=== PATIENT | female | born 1980 | race Two or more races ===

== ENCOUNTER 2016-12-18 09:33 | Day surgery (SDC) | payer OTHER ==
[2016-12-15 17:00] LABS: Basophils # (auto) 0.1 uL; Basophils % (auto) 0.6 % (0.0-2.0); Eosinophils # (auto) 2.1 uL; Hematocrit 43.2 % (36.0-46.0); Hemoglobin 15.2 g/dL (12.2-16.2); Lymphocytes # (auto) 2.5 uL; Lymphocytes % (auto) 26.8 % (10.0-50.0); Mean Corpuscular Hemoglobin 32.5 pg (28.0-32.0); Mean Corpuscular Hgb Conc. 35.2 g/dL (32.0-36.0); Mean Corpuscular Volume 92.2 fL (80.0-100.0); Mean Platelet Volume 8.7 fL (7.4-10.4); Monocytes # (auto) 0.6 uL; Neutrophils # (auto) 4.1 uL; Neutrophils % (auto) 43.8 % (37.0-80.0); Nucleated Red Blood Cells % 0.1 %; Platelet Count (auto) 266 10^3/uL (140-450); Red Cell Distribution Width 13.8 % (11.6-16.0); Urine Bilirubin Negative (Negative); Urine Blood Negative /uL (Negative); Urine Color Yellow (Yellow); Urine Glucose Normal (Normal); Urine Ketone Negative (Negative); Urine Nitrite Negative (Negative); Urine RBC <1 /hpf (0 - 4); Urine Squamous Epithelial Cell FEW /hpf (<5); Urine Urobilinogen Normal (Negative); White Blood Cell 9.4 10^3/uL (4.4-10.8)
[2016-12-15 17:04] LABS: Eosinophils % (auto) 22.8 % (0.0-7.0)
[2016-12-15 17:11] LABS: Albumin 3.6 g/dL (3.4-5.0); Calcium 8.7 mg/dL (8.5-10.1); Potassium 4.4 mmol/L (3.5-5.1)
[2016-12-15 17:17] LABS: Bilirubin, Total 0.9 mg/dL (0.2-1.0); Total Protein 7.2 g/dL (6.4-8.2)
[2016-12-15 17:24] LABS: INR 0.98 (0.9-1.15); Partial Thromboplastin Time 27.8 sec (22.64-33.71); Prothrombin Time 10.7 sec (9.37-12.3)
[2016-12-15 18:18] LABS: Platelet Estimate Adequate
[2016-12-15 18:19] LABS: RBC Morphology Normal
[~2016-12-18] VITALS: Ht 165.1 cm; Wt 77.1 kg
[~2016-12-18 09:33] MED LIST: THYR30TA PO
[2016-12-18] MEDS ORDERED: ceFAZolin 1GM/50ML D5W 50 ML IV ONE (10:35)
[2016-12-18] MEDS ORDERED: traMADol HCL 50 MG TAB PO PRN (11:30)
[2016-12-18] MEDS ORDERED: fentaNYL CITRATE 100 MCG/2 ML VL ONE (12:39)
[2016-12-18] MEDS ORDERED: MIDAZOLAM HCL 1MG/1ML-2 ML VIAL ONE (12:39)
[2016-12-18] MEDS ORDERED: HYDROmorphone HCL 2 MG/ML VL ONE (12:39)
[2016-12-18] MEDS ORDERED: ONDANSETRON HCL 4 MG/2 ML VIAL ONE (12:39)
[2016-12-18] MEDS ORDERED: PROPOFOL 10 MG/ML 20 ML IV ONE (12:39)
[2016-12-18] MEDS ORDERED: ONDANSETRON HCL 4 MG/2 ML VIAL IV PRN (13:00)
[2016-12-18] MEDS ORDERED: LIDOCAINE W/ EPINEPHRINE 1 % INJ 30ML ONE (13:02)
[2016-12-18] MEDS ORDERED: BUPIVACAINE 0.25% INJ 50ML VIAL ONE (13:02)
[2016-12-18] MEDS ORDERED: KETOROLAC TROMETH 60MG/2ML VIAL IM ONE (13:11)
[2016-12-18] MEDS ORDERED: ceFAZolin 1GM VL ONE (13:28)
[2016-12-18] MEDS ORDERED: diphenhdrAMINE HCL 50 MG/1 ML VL ONE (14:11)
[2016-12-18] MEDS ORDERED: HYDROmorphone HCL 2 MG/ML VL IV PRN (14:30)
[2016-12-18] MEDS ORDERED: METOCLOPRAMIDE HCL 5MG/ml INJ 2ml VIAL IV ONE (14:30)
[2016-12-18] MEDS ORDERED: diphenhdrAMINE HCL 50 MG/1 ML VL IV ONE (14:30)
[2016-12-18] MEDS ORDERED: KETOROLAC TROMETH 30 MG/ML 1ML VIAL IV ONE (14:30)
[2016-12-18 15:10] VITALS: BP 132/72
== END 2016-12-18 15:20 | disposition home or self-care (01) ==
LOC: SUR 09:33
PROVIDERS: ATTEND Obstetrics & Gynecology
DX: N84.2 Polyp of vagina (principal); N81.10 Cystocele, unspecified; N39.3 Stress incontinence (female) (male); I10 Essential (primary) hypertension; E06.9 Thyroiditis, unspecified; Z90.49 Acquired absence of other specified parts of digestive tract; Z90.710 Acquired absence of both cervix and uterus; I11.9 Hypertensive heart disease without heart failure; F10.99 Alcohol use, unspecified with unspecified alcohol-induced disorder; Z90.722 Acquired absence of ovaries, bilateral
CPT/HCPCS: 36415; 57106; 57240; 57288; 80053; 81001; 85025; 85610; 85730; 87086; 88302; 88305; C1771; J0690; J1170; J1200; J1885; J2001; J2250; J2405; J2704; J3010; J3490

== ENCOUNTER 2025-02-17 15:46 | Emergency (ER) | payer OTHER ==
[~2025-02-17] VITALS: Ht 165.1 cm; Wt 71.6 kg
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
[2025-02-17] MEDS: HYDROcodone-ACET 10/325MG TAB PO ONE (16:53)
[2025-02-17 16:55] VITALS: BP 167/100; PULSE 63; RESP 17; TEMP 98.6; O2SAT 98
[2025-02-17] MEDS ORDERED: TRAM-626 PO (17:40)
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
== END 2025-02-17 18:03 | disposition home or self-care (01) ==
LOC: ER 15:46
DX: S20.229A Contusion of unspecified back wall of thorax, initial encounter (principal); S09.8XXA Other specified injuries of head, initial encounter; F17.200 Nicotine dependence, unspecified, uncomplicated; Z79.899 Other long term (current) drug therapy; Z79.890 Hormone replacement therapy; Z88.5 Allergy status to narcotic agent; Z90.710 Acquired absence of both cervix and uterus; W22.8XXA Striking against or struck by other objects, initial encounter; Y93.89 Activity, other specified; Y92.89 Other specified places as the place of occurrence of the external cause; Y99.8 Other external cause status
CPT/HCPCS: 70450; 72080